=== PATIENT | female | born 1990 | race African-American/Black ===

== ENCOUNTER 2023-04-24 09:05 | Emergency (ER) | payer OTHER, SELFPAY ==
[2023-04-24 09:06] VITALS: BP 122/76
[2023-04-24 09:12] VITALS: BMI 30.6
--- NOTE | 2023-04-24 09:23 | ED.GENMED ---
History of Present Illness
<Arlene Owens PA-C - Last Filed: 04/24/23 10:59>
General
Chief Complaint: Headache
Source: patient
Exam Limitations: none
Time Seen by Provider: 04/24/23 09:09
Nursing documentation reviewed up to this point in time: agreed with
Travel History
Have you had any contact with someone who has COVID-19?: No
Do you have any symptoms of coronavirus? Fever > 100 degrees, chills, cough, shortness of breath, sore throat, loss of taste or smell, muscle aches, or headache?: No
History of Present Illness
History of Present Illness:
32-year-old female with a past medical history of migraine disorder presenting today with a headache for the past 2 days. Patient reports that this is characteristic of her migraine headaches and reports no change in her symptoms from previous
episodes. Patient has associated nausea and fatigue. Patient also has photophobia. Patient denies vomiting, abdominal pain, neck stiffness, fevers or chills, weakness in one-sided body versus the other, head trauma. Patient does not have a daily
medication and a rescue medication for her migraines. She states that she usually gets these once a month or every other month. She states that usually they do not break on their own at home and Tylenol and Advil do not help them. Patient reports
that she usually has to report to the emergency department for this. Patient unable to recall what medications worked best for her. Patient denies any chance of . Patient did drive here with her son.
Past History
<Arlene Owens PA-C - Last Filed: 04/24/23 10:59>
Past History
ED Past Medical History: None and Other
ED Past Surgical History: None
Social History
Tobacco: Non-smoker
Alcohol: None
Drug: None
Review of Systems
<Arlene Owens PA-C - Last Filed: 04/24/23 10:59>
Review of Systems
All Other Systems: ROS reviewed and negative except as documented in HPI and ROS
Phy Exam
<Arlene Owens PA-C - Last Filed: 04/24/23 10:59>
Physical Exam
Physical Exam:
General: Patient appears well is no acute distress
Skin: Warm and dry, no rashes or lesions
HEENT: head is normocephalic, atraumatic
Cardiac: Regular rate and rhythm, no murmurs
Pulm: Normal respiratory effort
Abdomen: No abdominal tenderness
Neuro: Alert and oriented x 3. Cranial nerves II through XII intact. No involuntary movements noted. [id number], finger-nose testing intact. No focal deficit.
Course
<Arlene Owens PA-C - Last Filed: 04/24/23 10:59>
Orders/Labs/Results
Orders:
Orders
04/24/23 09:37
0.9% Sodium Chloride 1000 ml [Nss] 1,000 ml IV BOLUS
Ketorolac [Toradol] 15 mg IV NOW STA
04/24/23 10:19
Dexamethasone Sod Phosphate [Decadron] 6 mg IV NOW STA
Ipratropium/Albuterol Sulfate [Duoneb] 3 ml INH R NOW ONE
Vital Signs
Initial and Last Documented VS:
Initial Vital Signs
Temp Pulse Resp BP Pulse Ox
98.2 F 65 18 122/76 100
04/24/23 09:06 04/24/23 09:06 04/24/23 09:06 04/24/23 09:06 04/24/23 09:06
Last Documented Vital Signs
Temp Pulse Resp BP Pulse Ox
98.2 F 77 18 125/81 99
04/24/23 09:06 04/24/23 11:11 04/24/23 11:11 04/24/23 11:11 04/24/23 11:11
<Juanito Aguilera MD - Last Filed: 04/24/23 11:17>
Orders/Labs/Results
Orders:
Orders
04/24/23 09:37
0.9% Sodium Chloride 1000 ml [Nss] 1,000 ml IV BOLUS
Ketorolac [Toradol] 15 mg IV NOW STA
04/24/23 10:19
Dexamethasone Sod Phosphate [Decadron] 6 mg IV NOW STA
Ipratropium/Albuterol Sulfate [Duoneb] 3 ml INH R NOW ONE
Vital Signs
Initial and Last Documented VS:
Initial Vital Signs
Temp Pulse Resp BP Pulse Ox
98.2 F 65 18 122/76 100
04/24/23 09:06 04/24/23 09:06 04/24/23 09:06 04/24/23 09:06 04/24/23 09:06
Last Documented Vital Signs
Temp Pulse Resp BP Pulse Ox
98.2 F 77 18 125/81 99
04/24/23 09:06 04/24/23 11:11 04/24/23 11:11 04/24/23 11:11 04/24/23 11:11
<Arlene Owens PA-C - Last Filed: 04/24/23 10:59>
MDM/Problems Addressed
Differential Diagnosis Includes:
Migraine headache, tension headache, cluster headache, sinus headache
MDM/Problems Addressed:
Headache
Chronic conditions affecting care:
Migraine disorder
Acute Exacerbation and/or Progression of Chronic Illness:
migraine disorder
<Arlene Owens PA-C - Last Filed: 04/24/23 10:59>
*Pulse Oximetry
Patient hypoxic: no
*Critical Care Note
Total Time (30-74mins, 75-104mins- exclusive of procedures): Not Applicable
Data Reviewed
Review of Other/Old Records Reveals: Records (Reviewed ER physician visit from 12/12/2022. Reviewed ER physician documentation from 08/10/2023 headache)
Prescriptions/Medications Considered But Not Given:
Considered Reglan and Benadryl to help treat her symptoms however patient drove here
Further Testing Considered But Not Given:
N/A
<Arlene Owens PA-C - Last Filed: 04/24/23 10:59>
Patient Management
Escalation/DeEscalation of care consider admission/obs:
32-year-old female with a past medical history of migraine disorder presenting today with a headache for the past 2 days. Patient reports that this is characteristic of her previous migraines. She denies recent illnesses, recent hospitalizations,
fevers or chills, vomiting, neck stiffness, visual changes. Patient's neurological exam is unremarkable. Patient was treated with fluids and Toradol which significantly improved her symptoms. Patient states that she is ready for discharge. We
provided her with neurology follow-up and advised to return emergency department should she experience a worsening of her symptoms, intractable vomiting, fevers or chills, or any other concerns.
<Arlene Owens PA-C - Last Filed: 04/24/23 10:59>
Update Note
Update Note:
10:16 am-- upon revaluation, patient states that her headache has significantly improved and only has a mild ache now
10:30 am--patient states that she feels well enough to go home, patient is interested in neurology referral
ED Attending Note
<Arlene Owens PA-C - Last Filed: 04/24/23 10:59>
-
Portions of this chart may have been created with voice recognition software.� Occasional wrong word or��sound alike� substitutions may have occurred due to the inherent limitations of voice recognition software.
<Juanito Aguilera MD - Last Filed: 04/24/23 11:17>
ED Attending Note
Patient seen and examined by attending physician: Yes
I performed the substantive portion of visit, reviewed & personally made and approve the management plan that is documented in note by myself or AUDIE.: Yes
ED Attending Note:
32-year-old female typical migraine. Bifrontal. Some photophobia. No other neurologic symptoms. She states she gets migraines like this every month or so. Frequently has to go to the ER. This is again her typical migraine. She denies
or other complaints.
On exam patient is nontoxic in no distress pupils. Pupils equal and reactive to light. Extraocular muscles intact. Speech normal. Neuroexam is grossly nonfocal. She is warm and dry. Perfusing well. Neck is supple.
Patient describes typical migraine. No indication for further radiologic testing. Symptomatic treatment. Patient was given Toradol with significant relief. Will be discharged to follow-up
Of note patient ambulated well and was in no distress upon discharge
Discharge Plan
Departure
Patient Disposition: Home (Routine Discharge)
Date of Disposition: 04/24/23
Time of Disposition: 10:41
Patient with high blood pressure during this ER visit?: No
Condition: Good
Discharge Problem:
Migraine headache
Instructions: Migraines (DC)
Prescriptions:
No Action
acetaminophen [Tylenol] 325 mg Tablet
650 mg PO DAILYPRN PRN (Reason: mild pain)
valacyclovir 500 mg Tablet
500 mg PO BIDPRN PRN (Reason: herpes)
ibuprofen 200 mg Tablet
400 mg PO DAILYPRN PRN (Reason: mild pain)
Referrals:
Hossein Pineda MD [Active] - Call in 1-3 days for appt
UNKNOWN - PT DOES,NOT KNOW [Family Provider] -
Activity Restrictions/Additional Instructions:
Patient given you a referral for neurologist. You can call in 1 to 3 days for an appointment to
Please return emergency department should you experience persistence or recurrence of her symptoms, fevers or chills, visual changes, neck stiffness, intractable vomiting, or other concerning signs or symptoms.
Please follow-up with your primary care provider.
Interventions
Interventions:
*Risk Screen - Suicide Last Done: 04/24/23 09:06
*General Assessment Last Done: 04/24/23 09:06
*Neglect/Abuse Screening Last Done: 04/24/23 09:06
ED- Fall Risk Assessment Last Done: 04/24/23 09:12
*ED COVID-19 Vaccine History Last Done: 04/24/23 09:06
*Nursing Disposition Last Done: 04/24/23 11:13
ED- Neurological Assessment Last Done: 04/24/23 09:12
Discharge Date and Time
Discharge Date/Time: 04/24/23 11:15
[2023-04-24] MEDS: TORADOL 15 MG IV (09:54)
[2023-04-24] MEDS: NSS 1000 IV (09:54)
[2023-04-24 11:11] VITALS: BP 125/81
== END 2023-04-24 11:15 | disposition home or self-care (01) ==
LOC: EMR 09:05
PROVIDERS: EMERGENCY PHYSICIAN Emergency Medicine
DX: G43.909 Migraine, unspecified, not intractable, without status migrainosus (principal)
CPT/HCPCS: 99285; 96374; 96361

== ENCOUNTER 2023-09-15 07:27 | Emergency (ER) | payer OTHER, SELFPAY ==
[2023-09-15 07:31] VITALS: BP 127/77
--- NOTE | 2023-09-15 08:33 | ED.GENMED ---
History of Present Illness
General
Chief Complaint: Headache
Source: patient and records
Time Seen by Provider: 09/15/23 08:05
Nursing documentation reviewed up to this point in time: agreed with
History of Present Illness
History of Present Illness:
32-year-old female presents with a headache similar to her prior headaches which she states her migraines for trigger typically is not drinking caffeine she takes 24 ounces of coffee a day none for about 36 hours she is trying to wean herself off
coffee no fevers, no photophobia mild nausea no vomiting no rash no trauma
Past History
Past History
ED Past Medical History: Other and Other (Migraine headaches)
ED Past Surgical History: None
Social History
Tobacco: Non-smoker
Alcohol: None
Drug: None
Living: with family
Employment: Employed
Review of Systems
Review of Systems
All Other Systems: Not applicable
Constitutional: Denies fever or fatigue
EENT: Reports no symptoms
Respiratory: Reports no symptoms
ABD/GI: Reports nausea
Neurological: Reports headache
Phy Exam
Physical Exam
Physical Exam:
Physical Exam
General: no apparent distress, not acutely ill
Neck: No photophobia
Heart: s1/s2 regular rate and rhythm, no murmur. equal radial pulses.
Lungs: no acute respiratory distress. clear bilaterally
Neuro: alert and oriented. no focal neurological deficits
Skin: no rash
Psychiatric: well kept. interactive and cooperative
Extremities: no edema.
Course
Orders/Labs/Results
Orders:
Orders
09/15/23 08:27
0.9% Sodium Chloride 1000 ml [Nss] 1,000 ml IV BOLUS
09/15/23 08:28
Ketorolac [Toradol] 30 mg IV NOW STA
09/15/23 08:51
Magnesium Sulfate 1 G/D5w [Magnesium Sulfate] 1 gm in 100 ml IV NOW
Vital Signs
Initial and Last Documented VS:
Initial Vital Signs
Temp Pulse Resp BP Pulse Ox
98.2 F 52 18 127/77 99
09/15/23 07:31 09/15/23 07:31 09/15/23 07:31 09/15/23 07:31 09/15/23 07:31
Last Documented Vital Signs
Temp Pulse Resp BP Pulse Ox
98.2 F 52 18 120/65 100
09/15/23 07:31 09/15/23 07:31 09/15/23 07:31 09/15/23 11:07 09/15/23 11:00
MDM/Problems Addressed
Differential Diagnosis Includes:
Migraine tension headache caffeine withdrawal headache rebound headache doubt [employer] infection intracerebral hemorrhage by history.
MDM/Problems Addressed:
Headache
Chronic conditions affecting care:
Headache
Acute Exacerbation and/or Progression of Chronic Illness:
Headache
*Critical Care Note
Total Time (30-74mins, 75-104mins- exclusive of procedures): Not Applicable
Update Note
Update Note:
Update patient feeling much better after IV fluids magnesium and Toradol
ED Attending Note
-
Portions of this chart may have been created with voice recognition software.� Occasional wrong word or��sound alike� substitutions may have occurred due to the inherent limitations of voice recognition software.
Discharge Plan
Departure
Patient Disposition: Home (Routine Discharge)
Date of Disposition: 09/15/23
Time of Disposition: 11:21
Patient with high blood pressure during this ER visit?: No
Condition: Good
Discharge Problem:
Headache
Instructions: Headache, Adult (DC)
Prescriptions:
New
magnesium 250 mg tablet
250 mg PO BID PRN (Reason: headache) Qty: 30 0RF
No Action
acetaminophen [Tylenol] 325 mg Tablet
650 mg PO DAILYPRN PRN (Reason: mild pain)
valacyclovir 500 mg Tablet
500 mg PO BIDPRN PRN (Reason: herpes)
ibuprofen 200 mg Tablet
400 mg PO DAILYPRN PRN (Reason: mild pain)
Referrals:
Elina Anthony CRNP [Family Provider] - Follow up in 10 days
Interventions
Interventions:
*Risk Screen - Suicide Last Done: 09/15/23 09:07
*General Assessment Last Done: 09/15/23 09:07
*Neglect/Abuse Screening Last Done: 09/15/23 09:07
ED- Fall Risk Assessment Last Done: 09/15/23 09:07
*ED COVID-19 Vaccine History Last Done: 09/15/23 09:07
ED- Neurological Assessment Last Done: 09/15/23 09:07
Discharge Date and Time
Print Language: PERSIAN
[2023-09-15 09:07] VITALS: BMI 31.6
[2023-09-15 09:10] VITALS: BP 106/68
[2023-09-15] MEDS: MAGNESIUM SULFATE 100 IV (09:26)
[2023-09-15] MEDS: TORADOL 30 MG IV (09:26)
[2023-09-15] MEDS: NSS 1000 IV (09:26)
[2023-09-15 10:00] VITALS: BP 112/64
[2023-09-15 11:07] VITALS: BP 120/65
[2023-09-15 11:56] VITALS: BP 120/73
== END 2023-09-15 12:12 | disposition home or self-care (01) ==
LOC: EMR 07:27
PROVIDERS: EMERGENCY PHYSICIAN Emergency Medicine; FAMILY PHYSICIAN Nurse Practitioner Family
DX: R51.9 Headache, unspecified (principal)
CPT/HCPCS: 99282; 96365; 96375

== ENCOUNTER 2023-12-12 11:54 | Emergency (ER) | payer OTHER, SELFPAY ==
[2023-12-12 11:59] VITALS: BP 119/79
--- NOTE | 2023-12-12 13:01 | ED.GENMED ---
History of Present Illness
General
Chief Complaint: Headache
Source: patient
Exam Limitations: none
Time Seen by Provider: 12/12/23 13:01
Nursing documentation reviewed up to this point in time: agreed with
History of Present Illness
History of Present Illness:
This is a 33-year-old female with history of migraine disorder presenting to the emergency department today with concerns of a migraine headache. Patient states that she gets these around once a month and states that they are usually triggered by
caffeine withdrawal. Patient reports that started yesterday and has been persistent. She notes a frontal headache. She denies any visual loss or visual changes. She denies any syncopal episodes. Patient notes some mild nausea and photophobia.
Patient states that this is characteristic of her typical migraines. Patient does not take anything daily for her migraines, does not take any as needed medication. Patient has never seen a neurologist or gotten imaging for this. She denies
fevers or chills, neck pain, head or neck trauma.
Past History
Past History
ED Past Medical History: Other and Other (Migraine headaches)
ED Past Surgical History: None
Social History
Tobacco: Non-smoker
Alcohol: None
Drug: None
Living: with family
Employment: Employed
Review of Systems
Review of Systems
All Other Systems: ROS reviewed and negative except as documented in HPI and ROS
Phy Exam
Physical Exam
Physical Exam:
General: Patient is well appearing and in no acute distress; non-toxic
Skin: Warm and dry, no rashes or lesions
Head: Normocephalic, atraumatic
Eyes: Sclera non-icteric. EOMs intact. PERRLA.
Cardiac: Regular rate and rhythm, no murmurs.
Pulm: Normal respiratory effort
Neuro: CN II-XII intact, no focal neurologic deficits. Normal finger-nose, [id number] testing.
Psychiatric: Appropriate mood and affect.
Course
Orders/Labs/Results
Orders:
Orders
12/12/23 13:16
0.9% Sodium Chloride 1000 ml [Nss] 1,000 ml IV BOLUS
Diphenhydramine [Benadryl] 12.5 mg IV NOW STA
Ketorolac [Toradol] 15 mg IV NOW STA
Metoclopramide [Reglan] 10 mg IV NOW STA
Vital Signs
Initial and Last Documented VS:
Initial Vital Signs
Temp Pulse Resp BP Pulse Ox
98.2 F 60 16 119/79 98
12/12/23 11:59 12/12/23 11:59 12/12/23 11:59 12/12/23 11:59 12/12/23 11:59
Last Documented Vital Signs
Temp Pulse Resp BP Pulse Ox
98.2 F 69 16 116/73 100
12/12/23 11:59 12/12/23 15:31 12/12/23 11:59 12/12/23 15:31 12/12/23 15:31
MDM/Problems Addressed
Differential Diagnosis Includes:
Differentials include tension headache, migraine headache, cluster headache, viral syndrome
MDM/Problems Addressed:
33-year-old female with history of migraine disorder presents emergency department today with concerns of a migraine. This started last night. Patient states that she usually gets 1 once a month and it is usually triggered by caffeine withdrawal.
Patient states that she has had this for a while now and has been seen in the ER multiple times for this. On review of previous records, patient was referred to a neurologist but patient states that she has not follow-up with her neurologist or PCP
much for this issue. Patient has been on magnesium for her migraines in the past. Patient currently takes no as needed or preventative medications for her migraines. On physical exam, she is well-appearing no active vomiting, no focal neurologic
deficits. She is treated with Reglan and Toradol Benadryl and IV fluids, patient states that her headache resolved and she is ready to go home and does not feel drowsy and feels that she can drive safely home. Do not feel imaging is warranted at
this time in the ER as patient has no focal deficits, had no head or neck trauma, however did recommend that patient possibly get outpatient MRI considering patient is never had imaging for her migraine disorder. Patient stable for discharge.
Chronic conditions affecting care:
migraine disorder
*Pulse Oximetry
Patient hypoxic: no
*Critical Care Note
Total Time (30-74mins, 75-104mins- exclusive of procedures): Not Applicable
Data Reviewed
Review of Other/Old Records Reveals: Records (Reviewed ER physician documentation from 09/15/2023 patient was seen for migraine, was treated here and discharged with no imaging, reviewed my note from 04/24/2023 patient was also seen for migraine)
Source: patient and records
Prescriptions/Medications Considered But Not Given:
Consider as needed medication for migraine however patient states that she does not get them frequently
Patient Management
Escalation/DeEscalation of care consider admission/obs:
Admit not indicated, patient stable for discharge. Reviewed case with my attending Dr. Monroy.
ED Attending Note
-
Portions of this chart may have been created with voice recognition software.� Occasional wrong word or��sound alike� substitutions may have occurred due to the inherent limitations of voice recognition software.
Discharge Plan
Departure
Patient Disposition: Home (Routine Discharge)
Date of Disposition: 12/12/23
Time of Disposition: 15:00
Patient with high blood pressure during this ER visit?: No
Condition: Good
Discharge Problem:
Acute migraine
Instructions: Migraines (DC)
Prescriptions:
No Action
acetaminophen [Tylenol] 325 mg Tablet
650 mg PO DAILYPRN PRN (Reason: mild pain)
valacyclovir 500 mg Tablet
500 mg PO BIDPRN PRN (Reason: herpes)
ibuprofen 200 mg Tablet
400 mg PO DAILYPRN PRN (Reason: mild pain)
magnesium 250 mg tablet
250 mg PO BID PRN (Reason: headache) Qty: 30 0RF
Referrals:
Dianna Mae MD [Active] - Call in 1-3 days for appt
Terry Abad MD [Family Provider] -
Activity Restrictions/Additional Instructions:
Please return to emergency department should you experience fevers or chills, neck pain, visual loss, visual changes, intractable nausea or vomiting, chest pain, shortness of breath, or any other signs or symptoms concern you.
Considering you have never had an MRI in the past, it may be reasonable to get this imaging study done. Please schedule a follow-up appointment with your primary care provider. I have also attached referral for neurologist.
Interventions
Interventions:
*Risk Screen - Suicide Last Done: 12/12/23 11:59
*General Assessment Last Done: 12/12/23 11:59
*Neglect/Abuse Screening Last Done: 12/12/23 11:59
*ED COVID-19 Vaccine History Last Done: 12/12/23 11:59
*Nursing Disposition Last Done: 12/12/23 15:31
ED- Neurological Assessment Last Done: 12/12/23 14:04
Discharge Date and Time
Discharge Date/Time: 12/12/23 15:32
Print Language: KAZAKH
[2023-12-12] MEDS: BENADRYL 12.5 MG IV (13:24)
[2023-12-12] MEDS: TORADOL 15 MG IV (13:24)
[2023-12-12] MEDS: REGLAN 10 MG IV (13:24)
[2023-12-12] MEDS: NSS 1000 IV (13:24)
[2023-12-12 15:31] VITALS: BP 116/73
== END 2023-12-12 15:32 | disposition home or self-care (01) ==
LOC: EMR 11:54
PROVIDERS: EMERGENCY PHYSICIAN Student in an Organized Health Care Education/Training Program; FAMILY PHYSICIAN Family Medicine
DX: G43.909 Migraine, unspecified, not intractable, without status migrainosus (principal)
CPT/HCPCS: 99282; 96374; 96375; 96361

== ENCOUNTER 2024-02-03 14:17 | Emergency (ER) | payer SELFPAY ==
[2024-02-03 14:22] VITALS: BP 126/83
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
== END 2024-02-03 16:06 | disposition home or self-care (01) ==
LOC: EMR 14:17
PROVIDERS: EMERGENCY PHYSICIAN Emergency Medicine; FAMILY PHYSICIAN Family Medicine
DX: M54.6 Pain in thoracic spine (principal); V43.62XA Car passenger injured in collision with other type car in traffic accident, initial encounter
CPT/HCPCS: 99283; 72050; 72072

== ENCOUNTER → 2024-05-06 12:11 | Outpatient (REF) | payer OTHER, SELFPAY ==
[2024-05-06 14:03] LABS: Beta HCG Quantitative < 2.39 mIU/ml
== END ==
LOC: REG 12:11
PROVIDERS: ATTENDING PHYSICIAN Obstetrics & Gynecology; FAMILY PHYSICIAN Family Medicine
DX: N91.2 Amenorrhea, unspecified (principal)
CPT/HCPCS: 36415; 84702

== ENCOUNTER 2024-07-05 19:56 | Emergency (ER) | payer OTHER, SELFPAY ==
[2024-07-05 20:04] VITALS: BP 125/82
[2024-07-05] MEDS: TYLENOL 1000 MG PO (20:21)
[2024-07-05 20:23] LABS: % Basophils 0.2 % (0-2); % Eosinophils 0.3 % (0-6); % Immature Granulocytes 0.3 % (0-0.5); % Lymphocytes 10.9 % (20.5-51.1); % Monocytes 6.2 % (1.7-9.3); % Neutrophils 82.1 % (42.2-75.2); Absolute Monocytes 0.6 10^3/uL (0.1-0.6); Absolute Neutrophils 7.7 10^3/uL (1.4-6.5); Hematocrit 39.9 % (37.0-47.0); Hemoglobin 13.6 g/dL (12.0-16.0); Mean Corp Hgb Conc. 34.1 g/dL (33.0-37.0); Mean Corpuscular Hgb 31.3 pg (27.0-31.0); Mean Corpuscular Volume 91.9 fL (81.0-99.0); Nucleated Red Blood Cells % 0 %; Platelet Count 230 10^3/uL (130-400); Red Blood Cell Count 4.34 10^6/uL (4.20-5.40); Red Cell Dist. Width 12.5 % (11.5-14.5); White Blood Cell Count 9.4 10^3/uL (4.8-10.8)
[2024-07-05 20:32] LABS: HCG, Serum Qualitative Screen Negative
[2024-07-05 20:37] LABS: ALT (SGPT) 19 U/L (0-35); AST (SGOT) 27 U/L (14-36); Albumin 4.4 g/dl (3.5-5.0); Alkaline Phosphatase 94 U/L (38-126); Blood Urea Nitrogen 13 mg/dl (7-17); Calcium 9.9 mg/dl (8.4-10.2); Carbon Dioxide 23 mmol/L (22-30); Chloride 105 mmol/L (98-107); Glucose 119 mg/dl (70-99); Potassium 4.1 mmol/L (3.5-5.1); Sodium 137 mmol/L (135-145); Total Bilirubin 0.9 mg/dl (0.2-1.3); Total Protein 7.8 g/dl (6.3-8.2); eGFR > 60.00
[2024-07-05 20:41] LABS: COVID-19 Antigen Negative (Negative)
[2024-07-05 23:12] VITALS: BP 94/54
--- NOTE | 2024-07-05 23:18 | ED.GENMED ---
History of Present Illness
General
Chief Complaint: Headache
Source: patient
Exam Limitations: none
Time Seen by Provider: 07/05/24 23:04
Nursing documentation reviewed up to this point in time: agreed with
History of Present Illness
History of Present Illness:
This is a 33-year-old woman with history of migraine headaches who presents with fever, generalized aches, sore throat and headache that began this afternoon, worse tonight. She denies cough, no nasal congestion, no chest nor abdominal pain, no
nausea nor vomiting. She has not taken anything for her symptoms.
No close contacts with similar symptoms.
No recent travel.
She takes no medicines on a daily basis.
Denies risk of .
Past History
Past History
ED Past Medical History: Other (Migraine headaches) and Other (Migraine headaches)
ED Past Surgical History: Gynecological
Social History
Tobacco: Non-smoker
Alcohol: None
Drug: None
Personal: Single
Living: with family
Employment: Employed
Family History
Family History: Other (Noncontributory)
Phy Exam
Physical Exam
Physical Exam:
GENERAL: 33-year-old woman appears her stated age, awake and alert, pleasant, appears in no acute distress. Oral temperature 99.9 �F.
EYE: pupils equal and reactive. anicteric
NECK: Supple, nontender, no meningismus, no significant adenopathy.
ENT: posterior pharynx is mildly injected without exudate nor ulceration, oral mucosa is moist. TM clear b/l, nares patent.
CARDIAC: Regular rate and rhythm. no murmur.
LUNGS: Clear breath sounds bilaterally, no acute respiratory distress, no wheezes/rales/rhonchi
ABDOMEN: Soft, nondistended, without focal tenderness, no r/g, no cvat. normoactive BS.
NEUROLOGICAL: Alert and oriented x3, no focal neuro deficits. Gait is steady.
SKIN: Warm and dry, normal color, skin intact. No rash.
MUSCULOSKELETAL: No C/C/E. peripheral pulses are full and equal b/l. No palpable tenderness.
PSYCH: Normal and appropriate interaction.
Sepsis
Sepsis Screening
Sepsis Assessment: Sepsis Ruled Out
Sepsis Screen
Sepsis Screen: Sepsis Ruled Out
Date: 07/06/24
Time: 00:30
Course
Orders/Labs/Results
Orders:
Orders
07/05/24 20:08
Test Result ONCE
07/05/24 20:13
COVID-19 Antigen Urgent
Source: Nasal Swab
Complete Blood Count/With Diff Urgent
Comprehensive Metabolic Panel Urgent
HCG, Serum Qualitative Screen Urgent
Influenza A+B Rapid Molecular Urgent
YANN Source: Nasal Swab
Specimen Description:
07/05/24 20:15
Acetaminophen [Tylenol] 1,000 mg .ROUTE .STK-MED ONE
07/05/24 20:17
Electrocardiogram (*1) Urgent
Reason for Study: Chest Pain
EKG- Treatment ONCE
07/05/24 20:21
Acetaminophen [Tylenol] 1,000 mg PO NOW STA
07/05/24 23:14
Ibuprofen [Motrin] 800 mg PO NOW STA
07/05/24 23:15
Encourage PO Hydration-Treatme ONCE
07/05/24 23:21
Rapid Strep Group A Urgent
YANN Source: Throat/Pharynx
Specimen Description:
Date Specimen was Collected: 07/05/24
Time Specimen was Collected: 23:17
07/06/24 00:28
Amoxicillin [Amoxil] 1,000 mg PO NOW STA
Abnormal Lab Results
07/05/24
20:13
MCH 31.3 H pg
(27.0-31.0)
Absolute Neuts (auto) 7.7 H 10^3/uL
(1.4-6.5)
Absolute Lymphs (auto) 1.0 L 10^3/uL
(1.2-3.4)
Neutrophils % 82.1 H %
(42.2-75.2)
Lymphocytes % 10.9 L %
(20.5-51.1)
Glucose 119 H mg/dl
(70-99)
07/05/24 20:13
07/05/24 20:13
Vital Signs
Initial and Last Documented VS:
Initial Vital Signs
Temp Pulse Resp BP Pulse Ox
102.8 F H 117 18 125/82 97
07/05/24 20:04 07/05/24 20:04 07/05/24 20:04 07/05/24 20:04 07/05/24 20:04
Last Documented Vital Signs
Temp Pulse Resp BP Pulse Ox
102.8 F H 117 18 94/54 99
07/05/24 20:04 07/05/24 20:04 07/05/24 20:04 07/05/24 23:12 07/05/24 23:30
MDM/Problems Addressed
Differential Diagnosis Includes:
Acute febrile illness with pharyngitis. Concern for viral pharyngitis, other consideration is strep pharyngitis.
Overall well in appearance. Appears euvolemic. No history of immunocompromise.
Labs are unremarkable.
Initial fever 102.8 �F has improved to 99.9 �F after a dose of Tylenol.
Will give a dose of ibuprofen and check rapid strep.
Will encourage oral hydration.
At this point no indication for imaging.
*Pulse Oximetry
Patient hypoxic: no
*Critical Care Note
Total Time (30-74mins, 75-104mins- exclusive of procedures): Not Applicable
Update Note
Update Note:
00:30
Rapid strep is positive.
Will initiate a course of amoxicillin.
Recommend continuing Tylenol versus ibuprofen as needed for fever, aches.
Discussed importance of staying well-hydrated on a daily basis.
Prompt follow-up with PCP for recheck.
ED Attending Note
-
Portions of this chart may have been created with voice recognition software.� Occasional wrong word or��sound alike� substitutions may have occurred due to the inherent limitations of voice recognition software.
Discharge Plan
Departure
Patient Disposition: Home (Routine Discharge)
Date of Disposition: 07/06/24
Time of Disposition: 00:29
Patient with high blood pressure during this ER visit?: No
Condition: Good
Discharge Problem:
Acute streptococcal pharyngitis
Instructions: Strep throat in adults, Fever in adults - ED discharge instructions
Prescriptions:
New
amoxicillin 875 mg tablet
875 mg PO BID Qty: 20 0RF
No Action
acetaminophen [Tylenol] 325 mg Tablet
650 mg PO DAILYPRN PRN (Reason: mild pain)
valacyclovir 500 mg Tablet
500 mg PO BIDPRN PRN (Reason: herpes)
ibuprofen 200 mg Tablet
400 mg PO DAILYPRN PRN (Reason: mild pain)
magnesium 250 mg tablet
250 mg PO BID PRN (Reason: headache) Qty: 30 0RF
hydrocodone-acetaminophen 5-325 mg tablet
1 tab PO Q4H PRN (Reason: Pain) Qty: 10 0RF
Referrals:
Lisa Gracia MD [Family Provider] - Call in 1-3 days for appt
Interventions
Interventions:
*Risk Screen - Suicide Last Done: 07/05/24 20:04
*General Assessment Last Done: 07/05/24 20:04
*Neglect/Abuse Screening Last Done: 07/05/24 20:04
ED- Neurological Assessment Last Done: 07/05/24 23:12
Discharge Date and Time
Print Language: BRUNEIAN
[2024-07-05] MEDS: MOTRIN 800 MG PO (23:21)
[2024-07-06] MEDS: AMOXIL 1000 MG PO (00:32)
[2024-07-06 00:34] VITALS: BP 108/81
== END 2024-07-06 00:40 | disposition home or self-care (01) ==
LOC: EMR 19:56
PROVIDERS: Emergency Medicine; EMERGENCY PHYSICIAN Emergency Medicine; FAMILY PHYSICIAN Family Medicine
DX: J02.0 Streptococcal pharyngitis (principal)
CPT/HCPCS: 99283; 80053; 84703; 85025; 87070; 87147; 87502; 87811; 87880; 93005

== ENCOUNTER 2024-11-15 11:07 | Outpatient (RCR) | payer OTHER, SELFPAY | END 2024-11-15 23:59 | disposition home or self-care (01) | LOC: RPT 11:07 | PROVIDERS: ATTENDING PHYSICIAN Family Medicine | DX: M79.671 Pain in right foot (principal); M79.672 Pain in left foot; Z73.6 Limitation of activities due to disability; R26.89 Other abnormalities of gait and mobility; R20.2 Paresthesia of skin | CPT/HCPCS: 97010; 97110; 97140; 97162; 97530 ==

== ENCOUNTER 2024-12-03 07:18 | Outpatient (RCR) | payer OTHER, SELFPAY | END 2024-12-03 23:59 | disposition home or self-care (01) | LOC: RPT 07:18 | PROVIDERS: ATTENDING PHYSICIAN Family Medicine | DX: M54.6 Pain in thoracic spine (principal); M54.2 Cervicalgia; Z73.6 Limitation of activities due to disability | CPT/HCPCS: 97110; 97162; 97530 ==

== ENCOUNTER 2024-12-24 08:21 | Outpatient (RCR) | payer OTHER, SELFPAY | END 2025-01-14 12:22 | disposition home or self-care (01) | LOC: RPT 08:21 | PROVIDERS: ATTENDING PHYSICIAN Family Medicine | DX: M54.6 Pain in thoracic spine (principal); M54.2 Cervicalgia; Z73.6 Limitation of activities due to disability | CPT/HCPCS: 97010; 97110 ==